=== PATIENT | male | born 1940 | race African-American/Black ===

== ENCOUNTER 2017-09-22 18:34 | Inpatient (IN) | payer MEDICARE, BC ==
[2017-09-22 22:19] LABS: #Eosinphils 0.2 thou/uL (0.0-0.7); #Lymphocytes 0.8 thou/uL (1.20-3.40); #Monocytes 0.6 thou/uL (0.11-0.59); #Neutrophils 4.8 thou/uL (1.40-6.50); %Basophils 0.2 % (0.0-1.0); %Eosinophils 2.9 % (0.0-10.0); %Lymphocytes 11.8 % (21.0-51.0); %Monocytes 9.2 % (0.0-10.0); Hemoglobin 13.2 g/dL (14.0-18.0); Mean Corpuscular HGB CONC 32.9 g/dL (32.0-36.0); Mean Corpuscular Hemoglobin 29.2 pg (27.0-31.0); Mean Corpuscular Volume 88.8 fl (80.0-94.0); Mean Platelet Volume 7.1 fL (7.4-10.4); Platelet Count 152 thou/uL (130-400); RBC Distribution Width 12.2 % (11.5-14.5); White Blood Cell (WBC) Count 6.4 thou/uL (4.8-10.8)
[2017-09-22 22:41] LABS: ALT (SGPT) 36 U/L (8-55); AST (SGOT) 66 U/L (5-34); Albumin 3.8 g/dL (3.4-4.8); Alkaline Phosphatase 56 U/L (40-150); Anion Gap 13 mmol/L (10-20); BUN (Urea Nitrogen) 21 mg/dL (8.4-25.7); Bilirubin, Total 0.8 mg/dL (0.2-1.2); CK (CPK) 3114 U/L (30-200); Calc. Creatinine Clearance 0 mL/min (70-130); Carbon Dioxide 26 mmol/L (23-31); Chloride 100 mmol/L (98-107); Estimated GFR-MDRD 73; Globulin 3.3 g/dL (2.4-3.5); Glucose 134 mg/dL (83-110); Potassium 3.7 mmol/L (3.5-5.1); Protein, Total 7.1 g/dL (5.8-8.1); Sodium 135 mmol/L (136-145)
--- NOTE | 2017-09-22 22:44 | CT ---
CT CERVICAL SPINE 09/22/17 PROVIDED CLINICAL HISTORY: Fall. FINDINGS: There is no evidence for fracture or traumatic subluxation. Cervical degenerative changes are seen. N o prevertebral soft tissue swelling evident. The visualized lung apices appear clear. IMPRESSION: No evidence for fracture or traumatic subluxation. POS: [facility]
[2017-09-22 22:45] LABS: Troponin I 0.044 ng/mL (< 0.028)
--- NOTE | 2017-09-22 22:45 | RAD ---
PORTABLE CHEST 09/22/17 PROVIDED CLINICAL HISTORY: Fall. FINDINGS: Comparison 05/10/11. The cardiac and mediastinal silhouette is within normal limits. Lungs appear clear. No pleural fluid or pneumothorax apparent. IMPRESSION: No evidence for an acute cardiopulmonary process. POS: [facility]
--- NOTE | 2017-09-22 22:56 | CT ---
CT BRAIN 09/22/17 PROVIDED CLINICAL HISTORY: Fall. FINDINGS: Comparison 05/10/11. The ventricular system appears unchanged in size and morphology. There is no evidence for intracrania l hemorrhage or mass effect. There is mucosal thickening seen involving the ethmoid air cells. The ex tracranial soft tissues and osseous structures demonstrate no acute abnormality. IMPRESSION: No evidence for intracranial hemorrhage or mass effect. POS: [facility]
[2017-09-22 23:02] LABS: CKMB 15.7 ng/mL (0-6.6)
[2017-09-23] MEDS ORDERED: Ondansetron HCl/PF 4 MG/2 ML Vial IVP PRN (01:49)
[2017-09-23] MEDS ORDERED: Ondansetron ODT 4 MG TAB SL PRN (01:49)
[2017-09-23] MEDS ORDERED: Acetaminophen 325 MG TAB PO PRN (01:49)
[2017-09-23] MEDS ORDERED: Sodium Chloride 0.9% 1,000 ML IV SCH (02:00)
[2017-09-23] MEDS ORDERED: Bisacodyl 5 MG TAB PO PRN (03:02)
[2017-09-23] MEDS ORDERED: Acetaminophen 650 MG Suppository PR PRN (03:02)
[2017-09-23 03:41] LABS: #Eosinphils 0.2 thou/uL (0.0-0.7); #Lymphocytes 0.6 thou/uL (1.20-3.40); #Monocytes 0.6 thou/uL (0.11-0.59); #Neutrophils 4.1 thou/uL (1.40-6.50); %Basophils 0.3 % (0.0-1.0); %Eosinophils 3.7 % (0.0-10.0); %Lymphocytes 11.3 % (21.0-51.0); %Monocytes 11.5 % (0.0-10.0); %Neutrophils 73.2 % (42.0-75.0); Hemoglobin 12.6 g/dL (14.0-18.0); Mean Corpuscular HGB CONC 33.1 g/dL (32.0-36.0); Mean Corpuscular Hemoglobin 29.3 pg (27.0-31.0); Mean Corpuscular Volume 88.6 fl (80.0-94.0); Mean Platelet Volume 7.3 fL (7.4-10.4); Platelet Count 142 thou/uL (130-400); RBC Distribution Width 12.1 % (11.5-14.5); Red Blood Cell (RBC) Count 4.32 mill/uL (4.70-6.10); White Blood Cell (WBC) Count 5.6 thou/uL (4.8-10.8)
[2017-09-23 04:01] LABS: Anion Gap 8 mmol/L (10-20); BUN (Urea Nitrogen) 21 mg/dL (8.4-25.7); Calc. Creatinine Clearance 0 mL/min (70-130); Calcium 8.7 mg/dL (7.8-10.44); Carbon Dioxide 27 mmol/L (23-31); Chloride 102 mmol/L (98-107); Estimated GFR-MDRD 79; Glucose 154 mg/dL (83-110); Potassium 3.3 mmol/L (3.5-5.1); Sodium 134 mmol/L (136-145)
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
[2017-09-23 04:06] LABS: Troponin I 0.051 ng/mL (< 0.028)
[2017-09-23 04:15] LABS: CKMB 16.3 ng/mL (0-6.6)
[2017-09-23] MEDS: Sodium Chloride 0.9% 1,000 ML IV SCH ×3 (04:24→22:05)
[2017-09-23 04:43] VITALS: BMI 27.6
[2017-09-23 05:48] LABS: INR-International Normal Ratio 2.8; Prothrombin Time 31.1 SEC (12.0-14.7)
[2017-09-23] MEDS ORDERED: Warfarin Sodium 2 MG TAB PO SCH (07:22)
[2017-09-23] MEDS ORDERED: Oseltamivir 75 MG CAP PO SCH (09:00)
[2017-09-23] MEDS ORDERED: Enoxaparin Sodium 40 MG/0.4 ML SYRINGE SC SCH ×2 (09:00)
[2017-09-23] MEDS ORDERED: FLU VACC TS2017-18 (>65YR) 0.5 ML SYRINGE IM ONE (09:00)
[2017-09-23] MEDS ORDERED: Prevnar 13-Val Conj/PF 0.5 ML SYRINGE IM ONE (09:00)
[2017-09-23] MEDS: Acetaminophen 325 MG TAB PO PRN ×2 (11:41→20:07)
--- NOTE | 2017-09-23 12:28 | PDOC.PN ---
- Subjective Encounter Start Date: 09/23/17 Encounter Start Time: 12:25 Mr. Vasquez was seen today in follow-up of Influenza A with sepsis. He has some baseline dementia, he looks weak, and is able to answer some questions, but the respons are unreliable. His daughter-in- law is at the bedside and says he is definitely more confused than usual, but overall looks better than last night. - Objective Resuscitation Status: Resuscitation Status FULL:Full Resuscitation MAR Reviewed: Yes Vital Signs & Weight: Vital Signs (12 hours) Temp Pulse Resp BP BP Pulse Ox 09/23/17 12:00 102.8 F H 114 H 22 H 164/64 H 96 09/23/17 09:10 98.3 F 89 22 H 97 09/23/17 07:25 98.3 F 89 22 H 155/62 H 97 09/23/17 04:00 98.8 F 89 20 153/60 H 97 09/23/17 02:05 100.1 F H 99 22 H 99 09/23/17 01:38 100.1 F H 99 22 H 153/76 H 99 Weight Weight 176 lb 6.4 oz I&O: 09/22/17 09/23/17 09/24/17 06:59 06:59 06:59 Intake Total 471 Output Total 150 Balance 321 Result Diagrams: 09/23/17 03:33 09/23/17 03:33 Phys Exam - Physical Examination HEENT: PERRLA + rhonchi bilaterally no rales Cardiovascular: RRR, no significant murmur Gastrointestinal: soft, non-tender, positive bowel sounds Musculoskeletal: no edema, pulses present + chronic venous stasis changes Dx/Plan (1) Influenza A Code(s): J10.1 - FLU DUE TO OTH IDENT INFLUENZA VIRUS W OTH RESP MANIFEST Status: Acute (2) SIRS (systemic inflammatory response syndrome) Code(s): R65.10 - SIRS OF NON-INFECTIOUS ORIGIN W/O ACUTE ORGAN DYSFUNCTION Status: Acute (3) Rhabdomyolysis Code(s): M62.82 - RHABDOMYOLYSIS Status: Acute (4) Hypertension Code(s): I10 - ESSENTIAL (PRIMARY) HYPERTENSION Status: Acute (5) History of DVT (deep vein thrombosis) Code(s): Z86.718 - PERSONAL HISTORY OF OTHER VENOUS THROMBOSIS AND EMBOLISM Status: Acute - Plan * Influenza A with sepsis- He is still have high fever, and is encephalopathic from the influenza * Continue IV hydration, and antipyretics * Rhabdo- will repeat the CK in the AM * History of DVT on coumadin- continue to monitor PT/INR, discontinue Lovenox * HTN- will continue PARN medications for now, once his fluid status is stable, can re-start his home antihypertensives * PT/OT evaluation, as he may require a stay is care home prior to discharge .
[2017-09-23] MEDS ORDERED: hydrALAZINE 20 MG/ML VIAL SLOW IVP PRN (12:32)
[2017-09-23] MEDS: Warfarin Sodium 2 MG TAB PO SCH (17:02)
[2017-09-23] MEDS: Oseltamivir 75 MG CAP PO SCH (20:13)
[2017-09-23] MEDS ORDERED: Oseltamivir 6 MG/ML ORAL SUSP PO SCH (21:00)
[2017-09-24 05:46] LABS: INR-International Normal Ratio 2.6; Prothrombin Time 29.2 SEC (12.0-14.7)
[2017-09-24 06:34] LABS: Anion Gap 12 mmol/L (10-20); BUN (Urea Nitrogen) 14 mg/dL (8.4-25.7); CK (CPK) 3996 U/L (30-200); Calc. Creatinine Clearance 75 mL/min (70-130); Calcium 8.4 mg/dL (7.8-10.44); Carbon Dioxide 22 mmol/L (23-31); Chloride 108 mmol/L (98-107); Estimated GFR-MDRD Greater than 90; Glucose 110 mg/dL (83-110); Potassium 3.5 mmol/L (3.5-5.1); Sodium 138 mmol/L (136-145)
[2017-09-24] MEDS: Oseltamivir 75 MG CAP PO SCH ×2 (08:06→22:25)
[2017-09-24] MEDS: Sodium Chloride 0.9% 1,000 ML IV SCH ×2 (10:10→12:46)
--- NOTE | 2017-09-24 11:10 | PDOC.PN ---
- Subjective Encounter Start Date: 09/24/17 Encounter Start Time: 09:00 Subjective: breathing better, no sob - Objective Resuscitation Status: Resuscitation Status FULL:Full Resuscitation MAR Reviewed: Yes Vital Signs & Weight: Vital Signs (12 hours) Temp Pulse Resp BP BP Pulse Ox 09/24/17 08:00 98 F 86 22 H 09/24/17 07:50 98 F 86 22 H 112/55 L 93 L 09/24/17 04:00 99.4 F 86 20 132/82 97 09/24/17 00:00 98.1 F 81 20 113/61 97 Weight Weight 176 lb 12.8 oz I&O: 09/23/17 09/24/17 09/25/17 06:59 06:59 06:59 Intake Total 471 1519 240 Output Total 150 50 Balance 321 1469 240 Result Diagrams: 09/23/17 03:33 09/24/17 05:08 Additional Labs: Accuchecks 09/23/17 20:05 POC Glucose 118 H Phys Exam - Physical Examination HEENT: PERRLA, moist MMs Neck: no JVD, supple Respiratory: no wheezing, no rales Cardiovascular: RRR, no significant murmur Gastrointestinal: soft, non-tender, positive bowel sounds Musculoskeletal: no edema, pulses present Neurological: non-focal, moves all 4 limbs Dx/Plan (1) Influenza A Code(s): J10.1 - FLU DUE TO OTH IDENT INFLUENZA VIRUS W OTH RESP MANIFEST Status: Acute (2) Rhabdomyolysis Code(s): M62.82 - RHABDOMYOLYSIS Status: Acute (3) SIRS (systemic inflammatory response syndrome) Code(s): R65.10 - SIRS OF NON-INFECTIOUS ORIGIN W/O ACUTE ORGAN DYSFUNCTION Status: Acute (4) Dementia Code(s): F03.90 - UNSPECIFIED DEMENTIA WITHOUT BEHAVIORAL DISTURBANCE Status: Chronic Qualifiers: Dementia type: unspecified type Dementia behavioral disturbance: without behavioral disturbance Qualified Code(s): F03.90 - Unspecified dementia without behavioral disturbance (5) Hypertension Code(s): I10 - ESSENTIAL (PRIMARY) HYPERTENSION Status: Chronic Qualifiers: Hypertension type: essential hypertension Qualified Code(s): I10 - Essential (primary) hypertension (6) History of DVT (deep vein thrombosis) Code(s): Z86.718 - PERSONAL HISTORY OF OTHER VENOUS THROMBOSIS AND EMBOLISM Status: Chronic - Plan gentle iv hydration, ck still peaking at 3996 -: on tamiflu -: tmax of 100 last 24hrs -: coumadin for h/o dvt, inr is 2.6 -: to mobilize as tolerated * . Review of Systems - Medications/Allergies Allergies/Adverse Reactions: Allergies Allergy/AdvReac Type Severity Reaction Status Date / Time UNKNOWN ANTIBIOTIC Allergy Uncoded 09/23/17 01:48 Medications: Current Medications Acetaminophen (Tylenol) 650 mg PO Q4H PRN PRN Reason: Headache/Fever or Pain Last Admin: 09/23/17 20:07 Dose: 650 mg Acetaminophen (Tylenol) 650 mg [place] Q4H PRN PRN Reason: Headache/Fever or Pain Bisacodyl (Dulcolax) 10 mg PO DAILYPRN PRN PRN Reason: Constipation Hydralazine HCl (Apresoline) 10 mg SLOW IVP Q4H PRN PRN Reason: Systolic BP > 180 Sodium Chloride (Normal Saline 0.9%) 1,000 mls @ 70 mls/hr IV .[id number] [facility] Lisinopril (Zestril) 10 mg PO QAM [facility] Memantine (Namenda) 5 mg PO QAM [facility] Non-Formulary Medication (Doxazosin Mesylate [Doxazosin Mesylate]) 4 mg PO HS [facility] Non-Formulary Medication (Multivit-Min/Fa/Lycopen/Lutein [Centrum Silver Tablet] ) 1 each PO QAM [facility] Oseltamivir Phosphate (Tamiflu) 75 mg PO BID [facility] Stop: 09/27/17 21:01 Last Admin: 09/24/17 08:06 Dose: 75 mg Warfarin Sodium (Coumadin) 1 mg PO WeSa [facility] Warfarin Sodium (Coumadin) 2 [facility] Last Admin: 09/23/17 17:02 Dose: 2 mg
[2017-09-24] MEDS: Warfarin Sodium 2 MG TAB PO SCH (17:39)
[2017-09-24] MEDS: Doxazosin Mesylate 4 MG TAB PO SCH (22:25)
[2017-09-25] MEDS: Sodium Chloride 0.9% 1,000 ML IV SCH ×3 (01:10→21:59)
[2017-09-25 05:11] LABS: #Eosinphils 0.5 thou/uL (0.0-0.7); #Monocytes 0.6 thou/uL (0.11-0.59); #Neutrophils 2.1 thou/uL (1.40-6.50); %Basophils 0.5 % (0.0-1.0); %Eosinophils 11.1 % (0.0-10.0); %Lymphocytes 24.4 % (21.0-51.0); %Monocytes 13.6 % (0.0-10.0); %Neutrophils 50.4 % (42.0-75.0); Hemoglobin 11.7 g/dL (14.0-18.0); Mean Corpuscular HGB CONC 31.7 g/dL (32.0-36.0); Mean Corpuscular Hemoglobin 28.4 pg (27.0-31.0); Mean Corpuscular Volume 89.7 fl (80.0-94.0); Mean Platelet Volume 7.5 fL (7.4-10.4); Platelet Count 131 thou/uL (130-400); RBC Distribution Width 12.1 % (11.5-14.5); Red Blood Cell (RBC) Count 4.13 mill/uL (4.70-6.10); White Blood Cell (WBC) Count 4.2 thou/uL (4.8-10.8)
[2017-09-25 05:22] LABS: INR-International Normal Ratio 2.2; Prothrombin Time 25.1 SEC (12.0-14.7)
[2017-09-25 05:34] LABS: Anion Gap 10 mmol/L (10-20); BUN (Urea Nitrogen) 11 mg/dL (8.4-25.7); CK (CPK) 2734 U/L (30-200); Calc. Creatinine Clearance 82 mL/min (70-130); Calcium 8.3 mg/dL (7.8-10.44); Carbon Dioxide 25 mmol/L (23-31); Chloride 109 mmol/L (98-107); Estimated GFR-MDRD Greater than 90; Glucose 107 mg/dL (83-110); Potassium 3.5 mmol/L (3.5-5.1); Sodium 140 mmol/L (136-145)
[2017-09-25] MEDS: Lisinopril 10 MG TAB PO SCH (08:44)
[2017-09-25] MEDS: Oseltamivir 75 MG CAP PO SCH ×2 (08:45→21:58)
[2017-09-25] MEDS: Multivitamin W/ Minerals 1 TAB PO SCH (08:45)
--- NOTE | 2017-09-25 13:04 | PDOC.PN ---
- Subjective Encounter Start Date: 09/25/17 Encounter Start Time: 10:00 Subjective: is amb in room -: feels better - Objective Resuscitation Status: Resuscitation Status FULL:Full Resuscitation MAR Reviewed: Yes Vital Signs & Weight: Vital Signs (12 hours) Temp Pulse Resp BP BP Pulse Ox 09/25/17 11:30 98.0 F 72 20 150/72 H 96 09/25/17 08:44 154/78 H 09/25/17 08:00 98.2 F 75 16 154/78 H 98 09/25/17 04:00 98.6 F 74 18 138/71 97 Weight Weight 181 lb 7 oz I&O: 09/24/17 09/25/17 09/26/17 06:59 06:59 06:59 Intake Total 1519 2480 180 Output Total 50 Balance 1469 2480 180 Result Diagrams: 09/25/17 04:30 09/25/17 04:30 Phys Exam - Physical Examination HEENT: PERRLA, moist MMs Neck: no JVD, supple Respiratory: no wheezing, no rales Cardiovascular: RRR, no significant murmur Gastrointestinal: soft, non-tender, positive bowel sounds Musculoskeletal: no edema, pulses present Neurological: non-focal, moves all 4 limbs Dx/Plan (1) Influenza A Code(s): J10.1 - FLU DUE TO OTH IDENT INFLUENZA VIRUS W OTH RESP MANIFEST Status: Acute (2) Rhabdomyolysis Code(s): M62.82 - RHABDOMYOLYSIS Status: Acute (3) SIRS (systemic inflammatory response syndrome) Code(s): R65.10 - SIRS OF NON-INFECTIOUS ORIGIN W/O ACUTE ORGAN DYSFUNCTION Status: Acute (4) Dementia Code(s): F03.90 - UNSPECIFIED DEMENTIA WITHOUT BEHAVIORAL DISTURBANCE Status: Chronic Qualifiers: Dementia type: unspecified type Dementia behavioral disturbance: without behavioral disturbance Qualified Code(s): F03.90 - Unspecified dementia without behavioral disturbance (5) Hypertension Code(s): I10 - ESSENTIAL (PRIMARY) HYPERTENSION Status: Chronic Qualifiers: Hypertension type: essential hypertension Qualified Code(s): I10 - Essential (primary) hypertension (6) History of DVT (deep vein thrombosis) Code(s): Z86.718 - PERSONAL HISTORY OF OTHER VENOUS THROMBOSIS AND EMBOLISM Status: Chronic - Plan gentle iv hydration -: ck levels are trending down -: d/w daughter at bedside -: plan is dc in am home with , daughter will stay with parents for holidays -: on tamiflu * . Review of Systems - Medications/Allergies Allergies/Adverse Reactions: Allergies Allergy/AdvReac Type Severity Reaction Status Date / Time UNKNOWN ANTIBIOTIC Allergy Uncoded 09/23/17 01:48 Medications: Current Medications Acetaminophen (Tylenol) 650 mg PO Q4H PRN PRN Reason: Headache/Fever or Pain Last Admin: 09/23/17 20:07 Dose: 650 mg Acetaminophen (Tylenol) 650 mg [place] Q4H PRN PRN Reason: Headache/Fever or Pain Bisacodyl (Dulcolax) 10 mg PO DAILYPRN PRN PRN Reason: Constipation Doxazosin Mesylate (Cardura) 4 mg PO HS [facility] Last Admin: 09/24/17 22:25 Dose: 4 mg Hydralazine HCl (Apresoline) 10 mg SLOW IVP Q4H PRN PRN Reason: Systolic BP > 180 Sodium Chloride (Normal Saline 0.9%) 1,000 mls @ 70 mls/hr IV .[id number] [facility] Last Admin: 09/25/17 01:10 Dose: 1,000 mls Iron/Minerals/Multivitamins (Theragran M) 1 tab PO DAILY [facility] Last Admin: 09/25/17 08:45 Dose: 1 tab Lisinopril (Zestril) 10 mg PO QAM [facility] Last Admin: 09/25/17 08:44 Dose: 10 mg Memantine (Namenda) 5 mg PO QAM [facility] Last Admin: 09/25/17 08:45 Dose: 5 mg Oseltamivir Phosphate (Tamiflu) 75 mg PO BID [facility] Stop: 09/27/17 21:01 Last Admin: 09/25/17 08:45 Dose: 75 mg Warfarin Sodium (Coumadin) 1 mg PO WeSa [facility] Warfarin Sodium (Coumadin) 2 mg PO SuMoTuThFr [facility] Last Admin: 09/24/17 17:39 Dose: 2 mg
[2017-09-25] MEDS: Doxazosin Mesylate 4 MG TAB PO SCH (21:58)
[2017-09-26 05:27] LABS: INR-International Normal Ratio 2.1
[2017-09-26 05:36] LABS: Anion Gap 11 mmol/L (10-20); BUN (Urea Nitrogen) 9 mg/dL (8.4-25.7); CK (CPK) 1280 U/L (30-200); Calc. Creatinine Clearance 90 mL/min (70-130); Calcium 8.5 mg/dL (7.8-10.44); Carbon Dioxide 20 mmol/L (23-31); Chloride 111 mmol/L (98-107); Estimated GFR-MDRD Greater than 90; Glucose 104 mg/dL (83-110); Potassium 3.5 mmol/L (3.5-5.1); Sodium 138 mmol/L (136-145)
[2017-09-26] MEDS: Sodium Chloride 0.9% 1,000 ML IV SCH (07:38)
[2017-09-26] MEDS: Oseltamivir 75 MG CAP PO SCH ×2 (09:28→21:06)
[2017-09-26] MEDS: Benzonatate 100 MG CAP PO SCH ×3 (09:28→21:05)
[2017-09-26] MEDS: Multivitamin W/ Minerals 1 TAB PO SCH (09:29)
[2017-09-26] MEDS: guaiFENesin ER 600 MG TAB PO SCH ×2 (09:29→21:06)
[2017-09-26] MEDS: Lisinopril 10 MG TAB PO SCH (09:29)
--- NOTE | 2017-09-26 11:11 | PDOC.PN ---
- Subjective Encounter Start Date: 09/26/17 Encounter Start Time: 09:00 Subjective: no sob, is eating breakfast -: at bedside - Objective Resuscitation Status: Resuscitation Status FULL:Full Resuscitation MAR Reviewed: Yes Vital Signs & Weight: Vital Signs (12 hours) Temp Pulse Resp BP BP Pulse Ox 09/26/17 09:29 154/81 H 09/26/17 08:00 98.4 F 74 18 96 09/26/17 07:40 98.4 F 74 18 154/81 H 96 09/26/17 04:00 98.4 F 74 18 155/67 H 97 09/26/17 01:07 99.5 F 87 16 174/73 H 96 Weight Weight 181 lb 7 oz I&O: 09/25/17 09/26/17 09/27/17 06:59 06:59 06:59 Intake Total 2480 2930 120 Balance 2480 2930 120 Result Diagrams: 09/25/17 04:30 09/26/17 04:38 Phys Exam - Physical Examination HEENT: PERRLA, moist MMs Neck: no JVD, supple Respiratory: no wheezing, no rales Cardiovascular: RRR, no significant murmur Gastrointestinal: soft, non-tender, positive bowel sounds Musculoskeletal: no edema, pulses present Neurological: non-focal, moves all 4 limbs Dx/Plan (1) Influenza A Code(s): J10.1 - FLU DUE TO OTH IDENT INFLUENZA VIRUS W OTH RESP MANIFEST Status: Acute (2) Rhabdomyolysis Code(s): M62.82 - RHABDOMYOLYSIS Status: Acute (3) SIRS (systemic inflammatory response syndrome) Code(s): R65.10 - SIRS OF NON-INFECTIOUS ORIGIN W/O ACUTE ORGAN DYSFUNCTION Status: Acute (4) Dementia Code(s): F03.90 - UNSPECIFIED DEMENTIA WITHOUT BEHAVIORAL DISTURBANCE Status: Chronic Qualifiers: Dementia type: unspecified type Dementia behavioral disturbance: without behavioral disturbance Qualified Code(s): F03.90 - Unspecified dementia without behavioral disturbance (5) Hypertension Code(s): I10 - ESSENTIAL (PRIMARY) HYPERTENSION Status: Chronic Qualifiers: Hypertension type: essential hypertension Qualified Code(s): I10 - Essential (primary) hypertension (6) History of DVT (deep vein thrombosis) Code(s): Z86.718 - PERSONAL HISTORY OF OTHER VENOUS THROMBOSIS AND EMBOLISM Status: Chronic - Plan at bedside says she cant take care of him at home -: wants either rehab or swing bed, cm consult -: has amb around 60ft with rw -: is on tamiflu -: dc iv fluids, mobilize as tolerated * . Review of Systems - Medications/Allergies Allergies/Adverse Reactions: Allergies Allergy/AdvReac Type Severity Reaction Status Date / Time amoxicillin Allergy Verified 09/25/17 22:13 UNKNOWN ANTIBIOTIC Allergy Uncoded 09/23/17 01:48 Medications: Current Medications Acetaminophen (Tylenol) 650 mg PO Q4H PRN PRN Reason: Headache/Fever or Pain Last Admin: 09/23/17 20:07 Dose: 650 mg Acetaminophen (Tylenol) 650 mg [place] Q4H PRN PRN Reason: Headache/Fever or Pain Albuterol Sulfate (Albuterol Sulfate) 1.25 mg NEB [id number] [facility] Benzonatate (Tessalon) 100 mg PO TID [facility] Last Admin: 09/26/17 09:28 Dose: 100 mg Bisacodyl (Dulcolax) 10 mg PO DAILYPRN PRN PRN Reason: Constipation Doxazosin Mesylate (Cardura) 4 mg PO HS [facility] Last Admin: 09/25/17 21:58 Dose: 4 mg Guaifenesin (Mucinex) 600 mg PO Q12HR [facility] Last Admin: 09/26/17 09:29 Dose: 600 mg Hydralazine HCl (Apresoline) 10 mg SLOW IVP Q4H PRN PRN Reason: Systolic BP > 180 Iron/Minerals/Multivitamins (Theragran M) 1 tab PO DAILY [facility] Last Admin: 09/26/17 09:29 Dose: 1 tab Lisinopril (Zestril) 10 mg PO QAM [facility] Last Admin: 09/26/17 09:29 Dose: 10 mg Memantine (Namenda) 5 mg PO QAM [facility] Last Admin: 09/26/17 09:28 Dose: 5 mg Oseltamivir Phosphate (Tamiflu) 75 mg PO BID [facility] Stop: 09/27/17 21:01 Last Admin: 09/26/17 09:28 Dose: 75 mg Warfarin Sodium (Coumadin) 1 mg PO WeSa [facility] Warfarin Sodium (Coumadin) 2 mg PO SuMoTuThFr [facility] Last Admin: 09/24/17 17:39 Dose: 2 mg
[2017-09-26] MEDS: Albuterol Sulfate 1.25 MG/3 ML NEB NEB SCH (14:54)
[2017-09-26] MEDS: Warfarin Sodium 2 MG TAB PO SCH (18:00)
[2017-09-26] MEDS: Doxazosin Mesylate 4 MG TAB PO SCH (21:06)
[2017-09-27] MEDS: Albuterol Sulfate 1.25 MG/3 ML NEB NEB SCH ×4 (03:53→23:57)
[2017-09-27 05:31] LABS: INR-International Normal Ratio 2.3; Prothrombin Time 26.2 SEC (12.0-14.7)
[2017-09-27] MEDS: Lisinopril 10 MG TAB PO SCH (09:22)
[2017-09-27] MEDS: guaiFENesin ER 600 MG TAB PO SCH ×2 (09:22→21:48)
[2017-09-27] MEDS: Benzonatate 100 MG CAP PO SCH ×3 (09:22→21:48)
[2017-09-27] MEDS: Oseltamivir 75 MG CAP PO SCH ×2 (09:22→21:48)
[2017-09-27] MEDS: Multivitamin W/ Minerals 1 TAB PO SCH (09:23)
--- NOTE | 2017-09-27 10:13 | PDOC.PN ---
- Subjective Encounter Start Date: 09/27/17 Encounter Start Time: 09:00 Subjective: no sob, is sitting on bed -: feels good - Objective Resuscitation Status: Resuscitation Status FULL:Full Resuscitation MAR Reviewed: Yes Vital Signs & Weight: Vital Signs (12 hours) Temp Pulse Resp BP BP Pulse Ox 09/27/17 09:22 137/82 09/27/17 04:00 98.6 F 69 20 162/76 H 97 09/27/17 00:00 98.4 F 78 18 163/66 H 97 Weight Weight 181 lb 7 oz I&O: 09/26/17 09/27/17 09/28/17 06:59 06:59 06:59 Intake Total 2930 840 Balance 2930 840 Result Diagrams: 09/25/17 04:30 09/26/17 04:38 Phys Exam - Physical Examination HEENT: PERRLA, moist MMs Neck: no JVD, supple Respiratory: no wheezing, no rales rhonchi+ Cardiovascular: RRR, no significant murmur Gastrointestinal: soft, non-tender, positive bowel sounds Musculoskeletal: no edema, pulses present Neurological: non-focal, moves all 4 limbs Dx/Plan (1) Influenza A Code(s): J10.1 - FLU DUE TO OTH IDENT INFLUENZA VIRUS W OTH RESP MANIFEST Status: Acute (2) Rhabdomyolysis Code(s): M62.82 - RHABDOMYOLYSIS Status: Acute (3) SIRS (systemic inflammatory response syndrome) Code(s): R65.10 - SIRS OF NON-INFECTIOUS ORIGIN W/O ACUTE ORGAN DYSFUNCTION Status: Acute (4) Dementia Code(s): F03.90 - UNSPECIFIED DEMENTIA WITHOUT BEHAVIORAL DISTURBANCE Status: Chronic Qualifiers: Dementia type: unspecified type Dementia behavioral disturbance: without behavioral disturbance Qualified Code(s): F03.90 - Unspecified dementia without behavioral disturbance (5) Hypertension Code(s): I10 - ESSENTIAL (PRIMARY) HYPERTENSION Status: Chronic Qualifiers: Hypertension type: essential hypertension Qualified Code(s): I10 - Essential (primary) hypertension (6) History of DVT (deep vein thrombosis) Code(s): Z86.718 - PERSONAL HISTORY OF OTHER VENOUS THROMBOSIS AND EMBOLISM Status: Chronic - Plan awaiting placement -: may dc anytime placement is ready -: alb neb q8h, tamiflu -: dc iv fluids, is eating well -: inr is 2.3 on coumadin for h/o dvt * . Review of Systems - Medications/Allergies Allergies/Adverse Reactions: Allergies Allergy/AdvReac Type Severity Reaction Status Date / Time amoxicillin Allergy Verified 09/25/17 22:13 UNKNOWN ANTIBIOTIC Allergy Uncoded 09/23/17 01:48 Medications: Current Medications Acetaminophen (Tylenol) 650 mg PO Q4H PRN PRN Reason: Headache/Fever or Pain Last Admin: 09/23/17 20:07 Dose: 650 mg Acetaminophen (Tylenol) 650 mg OH Q4H PRN PRN Reason: Headache/Fever or Pain Albuterol Sulfate (Albuterol Sulfate) 1.25 mg NEB [id number] [facility] Last Admin: 09/27/17 09:54 Dose: Not Given Benzonatate (Tessalon) 100 mg PO TID [facility] Last Admin: 09/27/17 09:22 Dose: 100 mg Bisacodyl (Dulcolax) 10 mg PO DAILYPRN PRN PRN Reason: Constipation Doxazosin Mesylate (Cardura) 4 mg PO HS [facility] Last Admin: 09/26/17 21:06 Dose: 4 mg Guaifenesin (Mucinex) 600 mg PO Q12HR [facility] Last Admin: 09/27/17 09:22 Dose: 600 mg Hydralazine HCl (Apresoline) 10 mg SLOW IVP Q4H PRN PRN Reason: Systolic BP > 180 Iron/Minerals/Multivitamins (Theragran M) 1 tab PO DAILY [facility] Last Admin: 09/27/17 09:23 Dose: 1 tab Lisinopril (Zestril) 10 mg PO QAM [facility] Last Admin: 09/27/17 09:22 Dose: 10 mg Memantine (Namenda) 5 mg PO QAM [facility] Last Admin: 09/27/17 09:22 Dose: 5 mg Oseltamivir Phosphate (Tamiflu) 75 mg PO BID [facility] Stop: 09/27/17 21:01 Last Admin: 09/27/17 09:22 Dose: 75 mg Warfarin Sodium (Coumadin) 1 mg PO WeSa [facility] Warfarin Sodium (Coumadin) 2 mg PO SuMoTuThFr [facility] Last Admin: 09/26/17 18:00 Dose: 2 mg
[2017-09-27] MEDS: Warfarin Sodium 2 MG TAB PO SCH (17:04)
[2017-09-27] MEDS: Doxazosin Mesylate 4 MG TAB PO SCH (21:47)
[2017-09-28 08:26] LABS: INR-International Normal Ratio 2.5; Prothrombin Time 28.3 SEC (12.0-14.7)
[2017-09-28] MEDS: guaiFENesin ER 600 MG TAB PO SCH (08:33)
[2017-09-28] MEDS: Lisinopril 10 MG TAB PO SCH (08:33)
[2017-09-28] MEDS: Multivitamin W/ Minerals 1 TAB PO SCH (08:33)
[2017-09-28] MEDS: Benzonatate 100 MG CAP PO SCH (08:33)
[2017-09-28] MEDS: Albuterol Sulfate 1.25 MG/3 ML NEB NEB SCH (09:13)
--- NOTE | 2017-09-28 10:41 | PDOC.PN ---
- Subjective Encounter Start Date: 09/28/17 Encounter Start Time: 08:00 Subjective: awake, no sob, feels better - Objective Resuscitation Status: Resuscitation Status FULL:Full Resuscitation MAR Reviewed: Yes Vital Signs & Weight: Vital Signs (12 hours) Temp Pulse Resp BP BP Pulse Ox 09/28/17 09:16 95 09/28/17 09:13 72 14 95 09/28/17 08:33 153/70 H 09/28/17 08:00 98.8 F 72 20 153/70 H 95 09/27/17 23:57 89 12 93 L Weight Weight 181 lb 7 oz I&O: 09/27/17 09/28/17 09/29/17 06:59 06:59 06:59 Intake Total 840 1820 120 Balance 840 1820 120 Result Diagrams: 09/25/17 04:30 09/26/17 04:38 Phys Exam - Physical Examination HEENT: PERRLA, moist MMs Neck: no JVD, supple Respiratory: no wheezing, no rales Cardiovascular: RRR, no significant murmur Gastrointestinal: soft, non-tender, positive bowel sounds Musculoskeletal: no edema, pulses present Neurological: non-focal, moves all 4 limbs Dx/Plan (1) Influenza A Code(s): J10.1 - FLU DUE TO OTH IDENT INFLUENZA VIRUS W OTH RESP MANIFEST Status: Acute Comment: resolving (2) Rhabdomyolysis Code(s): M62.82 - RHABDOMYOLYSIS Status: Acute Comment: resolving (3) SIRS (systemic inflammatory response syndrome) Code(s): R65.10 - SIRS OF NON-INFECTIOUS ORIGIN W/O ACUTE ORGAN DYSFUNCTION Status: Resolved (4) Dementia Code(s): F03.90 - UNSPECIFIED DEMENTIA WITHOUT BEHAVIORAL DISTURBANCE Status: Chronic Qualifiers: Dementia type: unspecified type Dementia behavioral disturbance: without behavioral disturbance Qualified Code(s): F03.90 - Unspecified dementia without behavioral disturbance (5) Hypertension Code(s): I10 - ESSENTIAL (PRIMARY) HYPERTENSION Status: Chronic Qualifiers: Hypertension type: essential hypertension Qualified Code(s): I10 - Essential (primary) hypertension (6) History of DVT (deep vein thrombosis) Code(s): Z86.718 - PERSONAL HISTORY OF OTHER VENOUS THROMBOSIS AND EMBOLISM Status: Chronic - Plan awaiting placement, may dc when ready -: inr is therapeutic for h/o dvt -: to amb with rw as tolerated -: d/w and daughter in room -: hemostable, has finished his course of tamiflu * . Review of Systems - Medications/Allergies Allergies/Adverse Reactions: Allergies Allergy/AdvReac Type Severity Reaction Status Date / Time amoxicillin Allergy Verified 09/25/17 22:13 UNKNOWN ANTIBIOTIC Allergy Uncoded 09/23/17 01:48 Medications: Current Medications Acetaminophen (Tylenol) 650 mg PO Q4H PRN PRN Reason: Headache/Fever or Pain Last Admin: 09/23/17 20:07 Dose: 650 mg Acetaminophen (Tylenol) 650 mg DE Q4H PRN PRN Reason: Headache/Fever or Pain Albuterol Sulfate (Albuterol Sulfate) 1.25 mg NEB [id number] [facility] Last Admin: 09/28/17 09:13 Dose: 1.25 mg Benzonatate (Tessalon) 100 mg PO TID [facility] Last Admin: 09/28/17 08:33 Dose: 100 mg Bisacodyl (Dulcolax) 10 mg PO DAILYPRN PRN PRN Reason: Constipation Doxazosin Mesylate (Cardura) 4 mg PO HS [facility] Last Admin: 09/27/17 21:47 Dose: 4 mg Guaifenesin (Mucinex) 600 mg PO Q12HR [facility] Last Admin: 09/28/17 08:33 Dose: 600 mg Hydralazine HCl (Apresoline) 10 mg SLOW IVP Q4H PRN PRN Reason: Systolic BP > 180 Iron/Minerals/Multivitamins (Theragran M) 1 tab PO DAILY [facility] Last Admin: 09/28/17 08:33 Dose: 1 tab Lisinopril (Zestril) 10 mg PO QAM [facility] Last Admin: 09/28/17 08:33 Dose: 10 mg Memantine (Namenda) 5 mg PO QAM [facility] Last Admin: 09/28/17 08:33 Dose: 5 mg Warfarin Sodium (Coumadin) 1 mg PO WeSa [facility] Warfarin Sodium (Coumadin) 2 mg PO SuMoTuThFr [facility] Last Admin: 09/27/17 17:04 Dose: 2 mg
[2017-09-28] MEDS ORDERED: WARFARIN PO PRN (13:56)
[2017-09-28 14:36] LABS: Bilirubin Negative (Negative); Blood, Urine Negative (Negative); Clarity CLOUDY (Clear); Glucose, Urine (Dipstick) Negative (Negative); Leukocyte Moderate (Negative); Nitrite Negative (Negative); Protein, Urine (Dipstick) Negative (Neg-Trace); Specific Gravity, Urine 1.017 (1.002-1.036)
[2017-09-28 14:37] LABS: Bacteria/HPF 2+ HPF (None Seen); Hyaline Casts/LPF 4-6 HYALINE CAST LPF (0-3 Hyaline); Pathc Cast-AUWi Flag 0.54 (0-2.49); RBC/HPF 0-3 HPF (0-3); Squamous Epithelial None Seen HPF (0-3)
[2017-09-28 15:49] VITALS: BP 152/69; TEMP 98.2
--- NOTE | 2017-09-28 19:18 | DIS ---
DATE OF ADMISSION: 09/23/2017 DATE OF DISCHARGE: 09/28/2017 DISCHARGE DISPOSITION: To [facility]. PRIMARY DISCHARGE DIAGNOSES: Influenza A with systemic inflammatory response syndrome, rhabdomyolysis. SECONDARY DISCHARGE DIAGNOSES: Dementia; deconditioning; hypertension; history of deep vein thrombosis, on Coumadin. PROCEDURES DONE DURING HOSPITALIZATION: CT brain done showed no acute intracranial abnormalities. CT cervical spine done showed no fracture or subluxation. Chest x-ray done showed no acute cardiopulmonary process. Influenza A antigen was positive on the flu screen. Discharge PT/INR 28 and 2.5. I had an initial CK of 3114. Troponin I was indeterminate at 0.05. DISCHARGE MEDICATIONS: Albuterol nebulizer q.8 h. p.r.n., doxazosin 4 mg p.o. at bedtime, lisinopril 10 mg p.o. daily, memantine 5 mg p.o. q.a.m., vitamin E 400 units p.o. q.a.m., Coumadin 2 mg as before. ALLERGIES: AMOXICILLIN. DISCHARGE PLAN: The patient is being discharged to swing bed at [facility]. BRIEF COURSE DURING HOSPITALIZATION: The patient initially got admitted on the after he apparently fell at home. He was unable to get up by himself after the fall. He was also coughing over the last 2 weeks and has been feeling weak. His initial flu screen was positive for influenza A. The patient had CK levels of 3114. He was essentially admitted for SIRS with influenza A and rhabdomyolysis. The patient has had gentle hydration done and was placed on Tamiflu. He was also on empiric antibiotics initially and has been discontinued at the time of discharge. He is hemodynamically stable. In view of deconditioning, he is being discharged to a swing bed in [facility]. A total of 35 minutes was spent on discharge. Please see a face to face documentation on [facility] for the day of discharge. [facility]
[2017-09-29] MEDS ORDERED: Warfarin Sodium 1 MG TAB PO SCH (17:00)
--- NOTE | 2017-10-02 13:27 | EKG ---
Test Reason : Blood Pressure : / mmHG Vent. Rate : 100 BPM Atrial Rate : 100 BPM P-R Int : 154 ms QRS Dur : 082 ms QT Int : 346 ms P-R-T Axes : 079 016 018 degrees QTc Int : 446 ms Sinus rhythm with occasional Premature ventricular complexes and Premature atrial complexes Otherwise normal ECG Confirmed by DALTON TAVAREZ ([id number]), rock contractor FLOR MICHEL ([id number]) on 10/02/2017 1:27:19 PM Referred By: Confirmed By:DALTON TAVAREZ
--- NOTE | 2017-10-08 14:01 | PQF ---
DONNA STRICKLAND VINAYA KUMAR MD [id number] CLINICAL DOCUMENTATION CLARIFICATION FORM: POST DISCHARGE DONNA STRICKLAND [id number] RONEY ALVARADO PLEASE DOCUMENT YOUR RESPONSE BELOW PLEASE FAX RESPONSE BACK TO [phone] YOUR INPUT IS NEEDED TO CORRECTLY CODE A DIAGNOSIS FOR YOUR PATIENT. DATE: 10/08/16 ATTN: DR DAVIS Please exercise your independent, professional judgment in responding to the clarification form. Clinical indicators are provided on the bottom of this form for your review Please check appropriate box(s) to clarify if the following diagnosis has been ruled in our ruled out: SEPSIS (CDI/Coding list diagnosis here) [ ] Ruled in diagnosis [ ] Continue to treat [ x] Resolved [ ] Ruled out diagnosis [ ] Cannot rule out diagnosis [ ] Other diagnosis [ ] Unable to determine In addition, please specify: Present on Admission (POA): [ ] Yes [ ] No [ ] Unable to determine For continuity of documentation, please document condition throughout progress notes and discharge summary. Thank You. CLINICAL INDICATORS - SIGNS / SYMPTOMS / LABS tachycardia, fever and encephalopathy, and high glucose in absence of DM all POA RISK FACTORS Influenza A TREATMENTS antibiotics hydration Documentation throughout charts gives conflicting diagnosis of SIRS on some progress notes and other notes state Sepsis. Please state whether Sepsis was ruled in or out. (This form is maintained as a part of the permanent medical record) 2014 [employer] All Rights Reserved Omayra [email or web address] [phone] ALEAH
== END 2017-09-28 16:30 | DRG 872 ==
LOC: ERS 18:34 → T4-B 09-23 00:15
PROVIDERS: ADMIT Internal Medicine; ATTEND Internal Medicine
DX: A41.9 Sepsis, unspecified organism (principal); M62.82 Rhabdomyolysis; F03.90 Unspecified dementia, unspecified severity, without behavioral disturbance, psychotic disturbance, mood disturbance, and anxiety; J10.1 Influenza due to other identified influenza virus with other respiratory manifestations; I10 Essential (primary) hypertension; N40.0 Benign prostatic hyperplasia without lower urinary tract symptoms; Z86.718 Personal history of other venous thrombosis and embolism; Z79.01 Long term (current) use of anticoagulants; Z88.1 Allergy status to other antibiotic agents; W18.30XA Fall on same level, unspecified, initial encounter; Y92.019 Unspecified place in single-family (private) house as the place of occurrence of the external cause; J10.81 Influenza due to other identified influenza virus with encephalopathy
CPT/HCPCS: 36415; 36416; 70450; 71010; 72125; 80048; 80053; 81003; 81015; 82550; 82553; 84484; 85025; 85610; 87077; 87086; 87186; 93005; 94640; 96360; G8978-GP-CL; G8979-GP-CJ; G8987-GO-CJ; G8988-GO-CI

== ENCOUNTER 2017-09-30 19:24 | Emergency (ER) | payer MEDICARE, BC | END 2017-09-30 20:59 | disposition home or self-care (01) | LOC: ERS 19:24 | DX: N39.0 Urinary tract infection, site not specified (principal); I10 Essential (primary) hypertension; Z79.891 Long term (current) use of opiate analgesic; Z79.899 Other long term (current) drug therapy | CPT/HCPCS: 99284 ==

== ENCOUNTER 2018-03-02 17:44 | Inpatient (IN) | payer MEDICARE, BC ==
[2018-03-02 18:29] LABS: #Lymphocytes 0.6 thou/uL (1.20-3.40); #Monocytes 0.6 thou/uL (0.11-0.59); #Neutrophils 6.6 thou/uL (1.40-6.50); %Basophils 0.3 % (0.0-1.0); %Eosinophils 0.5 % (0.0-10.0); %Lymphocytes 7.2 % (21.0-51.0); %Monocytes 7.8 % (0.0-10.0); %Neutrophils 84.2 % (42.0-75.0); Hemoglobin 13.1 g/dL (14.0-18.0); Mean Corpuscular HGB CONC 32.8 g/dL (32.0-36.0); Mean Corpuscular Hemoglobin 28.2 pg (27.0-31.0); Mean Corpuscular Volume 85.8 fl (80.0-94.0); Mean Platelet Volume 6.9 fL (7.4-10.4); Platelet Count 182 thou/uL (130-400); RBC Distribution Width 11.5 % (11.5-14.5); Red Blood Cell (RBC) Count 4.64 mill/uL (4.70-6.10); White Blood Cell (WBC) Count 7.8 thou/uL (4.8-10.8)
--- NOTE | 2018-03-02 18:46 | RAD ---
SINGLE VIEW OF THE CHEST: 03/02/18 COMPARISON: 09/22/17 HISTORY: Fever and tachycardia. FINDINGS: Single view of the chest shows a normal sized cardiomediastinal silhouette. There is no evidence of c onsolidation, mass, or pleural effusion. Degenerative changes are seen in the spine. IMPRESSION: No evidence of acute cardiopulmonary disease. POS: [facility]
[2018-03-02 18:50] LABS: ALT (SGPT) 21 U/L (8-55); AST (SGOT) 17 U/L (5-34); Albumin 3.6 g/dL (3.4-4.8); Alkaline Phosphatase 57 U/L (40-150); Anion Gap 11 mmol/L (10-20); BUN (Urea Nitrogen) 18 mg/dL (8.4-25.7); Bilirubin, Total 0.6 mg/dL (0.2-1.2); Calc. Creatinine Clearance 0 mL/min (70-130); Carbon Dioxide 22 mmol/L (23-31); Chloride 99 mmol/L (98-107); Estimated GFR-MDRD 77; Globulin 3.4 g/dL (2.4-3.5); Glucose 159 mg/dL (83-110); Sodium 128 mmol/L (136-145)
[2018-03-02 18:51] LABS: Bilirubin Negative (Negative); Blood, Urine Moderate (Negative); Clarity CLEAR (Clear); Glucose, Urine (Dipstick) Negative (Negative); Leukocyte Moderate (Negative); Nitrite Positive (Negative); Protein, Urine (Dipstick) Negative (Neg-Trace); Specific Gravity, Urine 1.018 (1.002-1.036)
[2018-03-02 18:54] LABS: CKMB 0.5 ng/mL (0-6.6); Troponin I Less than 0.010 ng/mL (< 0.028)
[2018-03-02 18:54] LABS: Bacteria/HPF 4+ HPF (None Seen); Hyaline Casts/LPF 0-3 HYALINE CAST LPF (0-3 Hyaline); Pathc Cast-AUWi Flag 0.14 (0-2.49); Squamous Epithelial 0-3 HPF (0-3)
[2018-03-02] MEDS ORDERED: Sodium Chloride 0.9% 100 ML ONE (19:14)
[2018-03-02] MEDS ORDERED: cefTRIAXone\\ROCEPHIN 2 GM VIAL ONE (19:14)
[2018-03-02] MEDS ORDERED: Acetaminophen 650 MG Suppository PR PRN (22:03)
[2018-03-02] MEDS ORDERED: Ondansetron HCl/PF 4 MG/2 ML Vial IVP PRN (22:03)
[2018-03-02] MEDS ORDERED: Acetaminophen 325 MG TAB PO PRN (22:03)
[2018-03-02 22:50] LABS: INR-International Normal Ratio 1.8; Prothrombin Time 21.1 SEC (12.0-14.7)
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
[2018-03-03] MEDS ORDERED: Warfarin Sodium 1 MG TAB PO SCH (00:30)
[2018-03-03 01:29] VITALS: BMI 28.4
[2018-03-03] MEDS: Sodium Chloride 0.9% 1,000 ML IV SCH ×2 (01:36→15:29)
[2018-03-03 05:13] LABS: #Eosinphils 0.1 thou/uL (0.0-0.7); #Neutrophils 5.2 thou/uL (1.40-6.50); %Basophils 0.2 % (0.0-1.0); %Eosinophils 0.8 % (0.0-10.0); %Lymphocytes 13.9 % (21.0-51.0); %Monocytes 13.4 % (0.0-10.0); %Neutrophils 71.7 % (42.0-75.0); Hemoglobin 12.2 g/dL (14.0-18.0); Mean Corpuscular HGB CONC 33.4 g/dL (32.0-36.0); Mean Corpuscular Hemoglobin 28.6 pg (27.0-31.0); Mean Corpuscular Volume 85.6 fl (80.0-94.0); Mean Platelet Volume 6.8 fL (7.4-10.4); Platelet Count 174 thou/uL (130-400); RBC Distribution Width 11.4 % (11.5-14.5); Red Blood Cell (RBC) Count 4.25 mill/uL (4.70-6.10); White Blood Cell (WBC) Count 7.3 thou/uL (4.8-10.8)
[2018-03-03 05:28] LABS: Anion Gap 12 mmol/L (10-20); BUN (Urea Nitrogen) 15 mg/dL (8.4-25.7); Calc. Creatinine Clearance 67 mL/min (70-130); Calcium 8.6 mg/dL (7.8-10.44); Carbon Dioxide 24 mmol/L (23-31); Chloride 103 mmol/L (98-107); Estimated GFR-MDRD 82; Glucose 133 mg/dL (83-110); Sodium 135 mmol/L (136-145)
--- NOTE | 2018-03-03 14:37 | PDOC.PN ---
- Subjective Encounter Start Date: 03/03/18 Encounter Start Time: 10:30 Subjective: pt up in bed no complains - Objective Vital Signs & Weight: Vital Signs (12 hours) Temp Pulse Resp BP Pulse Ox 03/03/18 12:46 91 17 120/59 L 98 03/03/18 09:02 97.6 F 90 17 147/63 H 98 03/03/18 03:42 98.6 F 86 17 120/57 L 97 Weight Weight 181 lb 8 oz I&O: 03/02/18 03/03/18 03/04/18 06:59 06:59 06:59 Intake Total 590 Balance 590 Result Diagrams: 03/03/18 04:42 03/03/18 04:42 Phys Exam - Physical Examination HEENT: PERRLA, moist MMs, sclera anicteric, TM's clear, oral pharynx no lesions , 2+ tonsils Neck: no nodes, no JVD, supple, full ROM Respiratory: no wheezing, no rales, no rhonchi, wheezing present, clear to auscultation bilateral Cardiovascular: RRR, no significant murmur, no rub, gallop, irregular Gastrointestinal: soft, non-tender, no distention, positive bowel sounds Musculoskeletal: no edema, pulses present, edema present Neurological: non-focal, normal sensation, moves all 4 limbs Dx/Plan - Plan * sepsis * uti * hyponatremia resolved * hx of dvt * htn * * plan: urine cx pending. will continue iv abx for now. will conitinue his coumadin. will continue his home meds. His hyponatremia has resolved. will consult PT. Review of Systems - Review of Systems Eyes: negative: Pain, Vision Change, Conjunctivae Inflammation, Eyelid Inflammation, Redness, Other ENT: negative: Ear Pain, Ear Discharge, Nose Pain, Nose Discharge, Nose Congestion, Mouth Pain, Mouth Swelling, Throat Pain, Throat Swelling, Other Respiratory: negative: Cough, Dry, Shortness of Breath, Hemoptysis, SOB with Excertion, Pleuritic Pain, Sputum, Wheezing Cardiovascular: negative: chest pain, palpitations, orthopnea, paroxysmal nocturnal dyspnea, edema, light headedness, other Gastrointestinal: negative: Nausea, Vomiting, Abdominal Pain, Diarrhea, Constipation, Melena, Hematochezia, Other Genitourinary: negative: Dysuria, Frequency, Incontinence, Hematuria, Retention , Other Musculoskeletal: negative: Neck Pain, Shoulder Pain, Arm Pain, Back Pain, Hand Pain, Leg Pain, Foot Pain, Other - Medications/Allergies Allergies/Adverse Reactions: Allergies Allergy/AdvReac Type Severity Reaction Status Date / Time amoxicillin Allergy Verified 03/03/18 03:53 UNKNOWN ANTIBIOTIC Allergy Uncoded 09/23/17 01:48 Medications: Current Medications Acetaminophen (Tylenol) 650 mg PO Q4H PRN PRN Reason: Headache/Fever or Pain Acetaminophen (Tylenol) 650 mg NM Q4H PRN PRN Reason: Headache/Fever or Pain Ceftriaxone Sodium 1 gm/ (Sodium Chloride) 100 mls @ 200 mls/hr IVPB Q24HR [facility] Sodium Chloride (Normal Saline 0.9%) 1,000 mls @ 70 mls/hr IV .[id number] [facility] Last Admin: 03/03/18 01:36 Dose: 1,000 mls Miscellaneous Medication (Pharmacy To Dose) 1 each PO PRN PRN PRN Reason: Pharmacy to dose Ondansetron HCl (Zofran) 4 mg IVP Q6H PRN PRN Reason: Nausea/Vomiting Sodium Chloride (Flush - Normal Saline) 10 ml IVF Q12HR [facility] Last Admin: 03/03/18 09:04 Dose: Not Given Sodium Chloride (Flush - Normal Saline) 10 ml IVF PRN PRN PRN Reason: Saline Flush Last Admin: 03/03/18 01:37 Dose: 10 ml Warfarin Sodium (Coumadin) 1 mg PO WeSa@1700 [facility] Warfarin Sodium (Coumadin) 2 mg PO SuMoTuThFr@1700 [facility]
[2018-03-03] MEDS: Warfarin Sodium 2 MG TAB PO SCH (17:41)
[2018-03-03] MEDS: Doxazosin Mesylate 4 MG TAB PO SCH (20:54)
[2018-03-03] MEDS: cefTRIAXone\\ROCEPHIN 1 GM in Sodium Chloride 0.9% 100 ML IVPB SCH (20:54)
[2018-03-04 05:29] LABS: INR-International Normal Ratio 1.5; Prothrombin Time 18.3 SEC (12.0-14.7)
[2018-03-04] MEDS: Sodium Chloride 0.9% 1,000 ML IV SCH (07:15)
[2018-03-04] MEDS: Multivit, Therapeutic 1 TAB PO SCH (09:30)
[2018-03-04] MEDS: Lisinopril 10 MG TAB PO SCH (09:30)
--- NOTE | 2018-03-04 11:48 | EKG ---
Test Reason : ER INDICATION Blood Pressure : / mmHG Vent. Rate : 110 BPM Atrial Rate : 110 BPM P-R Int : 176 ms QRS Dur : 076 ms QT Int : 322 ms P-R-T Axes : 027 020 028 degrees QTc Int : 435 ms Sinus tachycardia with Premature atrial complexes Otherwise normal ECG Confirmed by DALTON TAVAREZ ([id number]), scientific publications editor FLOR MICHEL ([id number]) on 03/04/2018 11:47:18 AM Referred By: Confirmed By:DALTON TAVAREZ
[2018-03-04] MEDS: Warfarin Sodium 2 MG TAB PO SCH (17:30)
[2018-03-04] MEDS: Doxazosin Mesylate 4 MG TAB PO SCH (20:28)
[2018-03-04] MEDS: cefTRIAXone\\ROCEPHIN 1 GM in Sodium Chloride 0.9% 100 ML IVPB SCH (20:28)
--- NOTE | 2018-03-04 21:05 | PDOC.PN ---
- Subjective Encounter Start Date: 03/04/18 Encounter Start Time: 10:30 Subjective: pt up in bed at bedside no complains - Objective Vital Signs & Weight: Vital Signs (12 hours) Temp Pulse Pulse Resp BP BP BP 03/04/18 15:15 97.5 F L 71 16 144/63 H 03/04/18 11:55 98.1 F 75 18 129/60 03/04/18 11:07 73 152/69 H 03/04/18 09:30 158/69 H Pulse Ox 03/04/18 15:15 97 03/04/18 11:55 98 03/04/18 11:07 03/04/18 09:30 Weight Weight 185 lb 1.6 oz I&O: 03/03/18 03/04/18 03/05/18 06:59 06:59 06:59 Intake Total 590 3050 1055 Balance 590 3050 1055 Result Diagrams: 03/03/18 04:42 03/03/18 04:42 Phys Exam - Physical Examination HEENT: PERRLA, moist MMs, sclera anicteric, TM's clear, oral pharynx no lesions , 2+ tonsils Neck: no nodes, no JVD, supple, full ROM Respiratory: no wheezing, no rales, no rhonchi, wheezing present, clear to auscultation bilateral Cardiovascular: RRR, no significant murmur, no rub, gallop, irregular Gastrointestinal: soft, non-tender, no distention, positive bowel sounds Musculoskeletal: no edema, pulses present, edema present Dx/Plan - Plan * sepsis * uti * hyponatremia resolved * hx of dvt * htn * * plan: urine cx pending. will continue iv abx for now. will continue his coumadin. will continue his home meds. His hyponatremia has resolved. will consult PT. * * 03/04 will await cx and change abx per sensitivities. will continue to monitor hyponatremia. continue Coumadin. Review of Systems - Review of Systems Eyes: negative: Pain, Vision Change, Conjunctivae Inflammation, Eyelid Inflammation, Redness, Other ENT: negative: Ear Pain, Ear Discharge, Nose Pain, Nose Discharge, Nose Congestion, Mouth Pain, Mouth Swelling, Throat Pain, Throat Swelling, Other Respiratory: negative: Cough, Dry, Shortness of Breath, Hemoptysis, SOB with Excertion, Pleuritic Pain, Sputum, Wheezing Cardiovascular: negative: chest pain, palpitations, orthopnea, paroxysmal nocturnal dyspnea, edema, light headedness, other Musculoskeletal: negative: Neck Pain, Shoulder Pain, Arm Pain, Back Pain, Hand Pain, Leg Pain, Foot Pain, Other - Medications/Allergies Allergies/Adverse Reactions: Allergies Allergy/AdvReac Type Severity Reaction Status Date / Time amoxicillin Allergy Verified 03/03/18 03:53 UNKNOWN ANTIBIOTIC Allergy Uncoded 09/23/17 01:48 Medications: Current Medications Acetaminophen (Tylenol) 650 mg PO Q4H PRN PRN Reason: Headache/Fever or Pain Acetaminophen (Tylenol) 650 mg [place] Q4H PRN PRN Reason: Headache/Fever or Pain Doxazosin Mesylate (Cardura) 4 mg PO HS [facility] Last Admin: 03/04/18 20:28 Dose: 4 mg Ceftriaxone Sodium 1 gm/ (Sodium Chloride) 100 mls @ 200 mls/hr IVPB Q24HR [facility] Last Admin: 03/04/18 20:28 Dose: 100 mls Lisinopril (Zestril) 10 mg PO QAM [facility] Last Admin: 03/04/18 09:30 Dose: 10 mg Memantine (Namenda) 5 mg PO BID [facility] Last Admin: 03/04/18 20:27 Dose: 5 mg Miscellaneous Medication (Pharmacy To Dose) 1 each PO PRN PRN PRN Reason: Pharmacy to dose Multivitamins (Theragran) 1 tab PO DAILY [facility] Last Admin: 03/04/18 09:30 Dose: 1 tab Ondansetron HCl (Zofran) 4 mg IVP Q6H PRN PRN Reason: Nausea/Vomiting Sodium Chloride (Flush - Normal Saline) 10 ml IVF Q12HR [facility] Last Admin: 03/04/18 20:29 Dose: 10 ml Sodium Chloride (Flush - Normal Saline) 10 ml IVF PRN PRN PRN Reason: Saline Flush Last Admin: 03/03/18 01:37 Dose: 10 ml Warfarin Sodium (Coumadin) 1 mg PO WeSa@1700 [facility] Warfarin Sodium (Coumadin) 2 mg PO SuMoTuThFr@1700 [facility] Last Admin: 03/04/18 17:30 Dose: 2 mg
[2018-03-05 05:43] LABS: INR-International Normal Ratio 1.5; Prothrombin Time 18.4 SEC (12.0-14.7)
[2018-03-05 05:48] LABS: Anion Gap 8 mmol/L (10-20); BUN (Urea Nitrogen) 12 mg/dL (8.4-25.7); Calc. Creatinine Clearance 71 mL/min (70-130); Calcium 8.8 mg/dL (7.8-10.44); Carbon Dioxide 26 mmol/L (23-31); Chloride 107 mmol/L (98-107); Estimated GFR-MDRD 85; Glucose 104 mg/dL (83-110); Potassium 3.9 mmol/L (3.5-5.1); Sodium 137 mmol/L (136-145)
[2018-03-05 05:57] LABS: Eosinophils 15 % (0-10); Hemoglobin 12.5 g/dL (14.0-18.0); Hypochromia SLIGHT = 6-15 cells (100X) (0-5/hpf); Lymphocytes 25 % (21-51); MDiff Complete? YES; Mean Corpuscular Hemoglobin 28.4 pg (27.0-31.0); Mean Corpuscular Volume 85.9 fl (80.0-94.0); Mean Platelet Volume 6.8 fL (7.4-10.4); Monocytes 15 % (0-10); Neutrophil 30 % (42-75); PLT Morphology Comment Appears Adequate; Platelet Count 192 thou/uL (130-400); RBC Distribution Width 11.5 % (11.5-14.5); Reactive Lymphocytes 15 % (0-10); Red Blood Cell (RBC) Count 4.39 mill/uL (4.70-6.10); White Blood Cell (WBC) Count 4.9 thou/uL (4.8-10.8)
[2018-03-05] MEDS: Lisinopril 10 MG TAB PO SCH (09:11)
[2018-03-05] MEDS: Multivit, Therapeutic 1 TAB PO SCH (09:12)
--- NOTE | 2018-03-05 09:49 | PDOC.PN ---
- Subjective Encounter Start Date: 03/05/18 Encounter Start Time: 08:45 -: old records requested/rev Patient seen and examined for UTI. No new complaints. No overnight events - Objective MAR Reviewed: Yes Vital Signs & Weight: Vital Signs (12 hours) Temp Pulse Resp BP BP Pulse Ox 03/05/18 09:11 154/62 H 03/05/18 07:44 98.2 F 55 L 16 154/62 H 98 03/05/18 04:40 97.9 F 64 18 133/72 95 03/05/18 04:14 99 03/05/18 00:00 98.7 F 70 20 154/69 H 99 Weight Weight 185 lb 1.6 oz I&O: 03/04/18 03/05/18 03/06/18 06:59 06:59 06:59 Intake Total 3050 1365 Output Total 400 Balance 3050 965 Result Diagrams: 03/05/18 04:26 03/05/18 04:26 Phys Exam - Physical Examination Constitutional: NAD HEENT: PERRLA, moist MMs, sclera anicteric Neck: no JVD, supple Respiratory: no wheezing, no rales, no rhonchi Cardiovascular: RRR, no significant murmur, no rub Gastrointestinal: soft, non-tender, no distention, positive bowel sounds Musculoskeletal: no edema, pulses present Neurological: non-focal, normal sensation, moves all 4 limbs Lymphatic: no nodes Psychiatric: normal affect, A&O x 3 Skin: no rash, normal turgor Dx/Plan (1) UTI (urinary tract infection) Status: Acute (2) Chronic anticoagulation Code(s): Z79.01 - RAND CEMENTER (CURRENT) USE OF ANTICOAGULANTS Status: Chronic (3) Dementia Code(s): F03.90 - UNSPECIFIED DEMENTIA WITHOUT BEHAVIORAL DISTURBANCE Status: Chronic Qualifiers: Dementia type: unspecified type Dementia behavioral disturbance: without behavioral disturbance Qualified Code(s): F03.90 - Unspecified dementia without behavioral disturbance (4) History of DVT (deep vein thrombosis) Code(s): Z86.718 - PERSONAL HISTORY OF OTHER VENOUS THROMBOSIS AND EMBOLISM Status: Chronic (5) Hypertension Code(s): I10 - ESSENTIAL (PRIMARY) HYPERTENSION Status: Chronic Qualifiers: Hypertension type: essential hypertension Qualified Code(s): I10 - Essential (primary) hypertension (6) Hyponatremia Code(s): E87.1 - HYPO-OSMOLALITY AND HYPONATREMIA Status: Resolved - Plan cont current plan of care, plan discussed w/ family, continue antibiotics * medication reviewed as below * symptomatic treatment * continue macrobid * discussed with . Review of Systems - Review of Systems Eyes: negative: Pain, Vision Change, Conjunctivae Inflammation, Eyelid Inflammation, Redness, Other ENT: negative: Ear Pain, Ear Discharge, Nose Pain, Nose Discharge, Nose Congestion, Mouth Pain, Mouth Swelling, Throat Pain, Throat Swelling, Other Respiratory: negative: Cough, Dry, Shortness of Breath, Hemoptysis, SOB with Excertion, Pleuritic Pain, Sputum, Wheezing Cardiovascular: negative: chest pain, palpitations, orthopnea, paroxysmal nocturnal dyspnea, edema, light headedness, other Gastrointestinal: negative: Nausea, Vomiting, Abdominal Pain, Diarrhea, Constipation, Melena, Hematochezia, Other Genitourinary: negative: Dysuria, Frequency, Incontinence, Hematuria, Retention , Other Musculoskeletal: negative: Neck Pain, Shoulder Pain, Arm Pain, Back Pain, Hand Pain, Leg Pain, Foot Pain, Other Skin: negative: Rash, Lesions, Saqib, Bruising, Other - Medications/Allergies Allergies/Adverse Reactions: Allergies Allergy/AdvReac Type Severity Reaction Status Date / Time amoxicillin Allergy Verified 03/03/18 03:53 UNKNOWN ANTIBIOTIC Allergy Uncoded 09/23/17 01:48 Medications: Current Medications Acetaminophen (Tylenol) 650 mg PO Q4H PRN PRN Reason: Headache/Fever or Pain Acetaminophen (Tylenol) 650 mg NM Q4H PRN PRN Reason: Headache/Fever or Pain Doxazosin Mesylate (Cardura) 4 mg PO HS [facility] Last Admin: 03/04/18 20:28 Dose: 4 mg Ceftriaxone Sodium 1 gm/ (Sodium Chloride) 100 mls @ 200 mls/hr IVPB Q24HR [facility] Last Admin: 03/04/18 20:28 Dose: 100 mls Lisinopril (Zestril) 10 mg PO QAM [facility] Last Admin: 03/05/18 09:11 Dose: 10 mg Memantine (Namenda) 5 mg PO BID [facility] Last Admin: 03/05/18 09:11 Dose: 5 mg Miscellaneous Medication (Pharmacy To Dose) 1 each PO PRN PRN PRN Reason: Pharmacy to dose Multivitamins (Theragran) 1 tab PO DAILY [facility] Last Admin: 03/05/18 09:12 Dose: 1 tab Ondansetron HCl (Zofran) 4 mg IVP Q6H PRN PRN Reason: Nausea/Vomiting Sodium Chloride (Flush - Normal Saline) 10 ml IVF Q12HR [facility] Last Admin: 03/05/18 09:12 Dose: 10 ml Sodium Chloride (Flush - Normal Saline) 10 ml IVF PRN PRN PRN Reason: Saline Flush Last Admin: 03/03/18 01:37 Dose: 10 ml Warfarin Sodium (Coumadin) 1 mg PO WeSa@1700 [facility] Warfarin Sodium (Coumadin) 2 mg PO SuMoTuThFr@1700 [facility] Last Admin: 03/04/18 17:30 Dose: 2 mg
--- NOTE | 2018-03-05 10:34 | DIS ---
DATE OF ADMISSION: 03/03/2018 DATE OF DISCHARGE: 03/05/2018 PRIMARY CARE PHYSICIAN: Dr. Diego Reeves. DISCHARGE DISPOSITION: Home. PRIMARY DISCHARGE DIAGNOSES: Hyponatremia, corrected; dehydration, corrected; urinary tract infectio n due to Citrobacter. 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 PRIMARY PROCEDURE AND OPERATION: None. RADIOLOGICAL INVESTIGATION: Chest x-ray normal. SIGNIFICANT LABORATORY DATA: WBC 4.9, hemoglobin 12.5, platelet 192. INR 1.5. Sodium 137, creatini ne 1.02. LFT normal. Cardiac enzymes negative. Urinalysis suggestive of UTI. Urine culture grew C itrobacter. Blood culture negative. DISCHARGE MEDICATIONS: Macrobid 100 mg p.o. b.i.d. for 7 more days, doxazosin 4 mg p.o. at bedtime, hydrochlorothiazide 25 mg p.o. daily, lisinopril 10 mg p.o. daily, Namenda 5 mg p.o. b.i.d., multivit anaya 1 tablet p.o. daily, potassium chloride 10 mEq p.o. daily, vitamin E 400 unit p.o. daily, warfar in 2 mg as directed. CONTRAINDICATIONS: None. CODE STATUS: FULL CODE. INPATIENT CONSULTANTS: None. ALLERGIES: AMOXICILLIN. DISCHARGE PLAN: Post hospital, the patient will follow up with primary care physician in 1 week. HOSPITAL COURSE: A 77-year-old male with above-mentioned medical problem who was admitted by Dr. Johnny feliciano, please see his H&P for further details. The patient was admitted for urinary tract infection. T he patient was clinically appeared dehydrated. He was very weak on admission. He had hyponatremia. He was hydrated with IV fluid and his sodium was improved. His urinalysis was suggestive of UTI and urine culture grew Citrobacter. His blood culture was negative. He was treated with Rocephin while in hospital. Upon discharge, we changed to Macrobid. The patient is seen and examined at bedside today. He is stable, afebrile, tolerating p.o. well. Pl an of discharge discussed with the patient's . Please see my progress note from today for further detail.
[2018-03-05 11:54] VITALS: BP 139/72; TEMP 98.1
[2018-03-05] MEDS ORDERED: Warfarin Sodium 1 MG TAB PO SCH (17:00)
== END 2018-03-05 13:07 | disposition home or self-care (01) | DRG 872 ==
LOC: ERS 17:44 → 2NO 03-03 01:09 → T4-B 03-04 18:56
PROVIDERS: ADMIT Family Medicine; ATTEND Family Medicine
DX: A41.59 Other Gram-negative sepsis (principal); N39.0 Urinary tract infection, site not specified; E87.1 Hypo-osmolality and hyponatremia; I10 Essential (primary) hypertension; N40.0 Benign prostatic hyperplasia without lower urinary tract symptoms; Z79.899 Other long term (current) drug therapy; Z88.0 Allergy status to penicillin; Z79.01 Long term (current) use of anticoagulants; E86.0 Dehydration; Z86.718 Personal history of other venous thrombosis and embolism
CPT/HCPCS: 36415; 51701; 71045; 80048; 80053; 81003; 81015; 82553; 83605; 84484; 85007; 85025; 85027; 85610; 87040; 87077; 87086; 87186; 93005; 94760; 96361; 96365; 96367; A4216; G8978-GP-CM; G8979-GP-CK; J0696; J3370; J7050

== ENCOUNTER 2018-11-10 05:48 | Emergency (ER) | payer MEDICARE, BC ==
[2018-11-10] MEDS ORDERED: Ondansetron PF 4 MG/2 ML Vial ONE (06:38)
[2018-11-10 06:45] LABS: #Basophils 0.1 thou/uL (0.0-0.2); #Eosinphils 0.2 thou/uL (0.0-0.7); #Lymphocytes 1.5 thou/uL (1.20-3.40); #Monocytes 0.5 thou/uL (0.11-0.59); %Basophils 1.2 % (0.0-1.0); %Eosinophils 3.2 % (0.0-10.0); %Lymphocytes 28.4 % (21.0-51.0); %Monocytes 10.1 % (0.0-10.0); %Neutrophils 57.1 % (42.0-75.0); Hemoglobin 13.2 g/dL (14.0-18.0); Mean Corpuscular HGB CONC 32.2 g/dL (32.0-36.0); Mean Corpuscular Hemoglobin 27.5 pg (27.0-31.0); Mean Corpuscular Volume 85.4 fL (78.0-98.0); Mean Platelet Volume 8.1 fL (7.4-10.4); Platelet Count 192 thou/uL (130-400); Red Blood Cell (RBC) Count 4.79 mill/uL (4.70-6.10); White Blood Cell (WBC) Count 5.2 thou/uL (4.8-10.8)
[2018-11-10 07:06] LABS: ALT (SGPT) 21 U/L (8-55); AST (SGOT) 23 U/L (5-34); Albumin 3.9 g/dL (3.4-4.8); Alkaline Phosphatase 64 U/L (40-150); Anion Gap 13 mmol/L (10-20); BUN (Urea Nitrogen) 14 mg/dL (8.4-25.7); Bilirubin, Total 0.5 mg/dL (0.2-1.2); Calc. Creatinine Clearance 0 mL/min (70-130); Calcium 9.3 mg/dL (7.8-10.44); Carbon Dioxide 23 mmol/L (23-31); Chloride 101 mmol/L (98-107); Estimated GFR-MDRD 81; Globulin 3.4 g/dL (2.4-3.5); Glucose 121 mg/dL (83-110); Lipase 58 U/L (8-78); Potassium 4.2 mmol/L (3.5-5.1); Protein, Total 7.3 g/dL (5.8-8.1); Sodium 133 mmol/L (136-145)
[2018-11-10 07:14] LABS: INR-International Normal Ratio 2.6; PTT 34.1 SEC (22.9-36.1); Prothrombin Time 27.9 SEC (12.0-14.7)
--- NOTE | 2018-11-10 08:04 | CT ---
CT ABDOMEN AND PELVIS WITH COTNRAST: HISTORY: Vomiting blood for 1 ay. TECHNIQUE: Multiple contiguous axial images were obtained in a CT of the abdomen and pelvis with contrast. Chani nal reformats were performed. FINDINGS: A 1.4 cm hypodensity in the right kidney represents a cyst. A subcentimeter hypodensity in the left kidney also likely represents a cyst. The liver, gallbladder, adrenal glands, spleen, and pancreas a re unremarkable. No free air, free fluid, or stranding changes are seen in the abdomen or pelvis. Moderate stool retention is seen in the rectum and distal sigmoid colon. No abnormality is seen in t he small bowel. The appendix is unremarkable. No abdominal or pelvic lymphadenopathy are seen. Atherosclerotic calcifications are seen in the aort a. There is a small hiatal hernia. Degenerative changes are seen in the spine. The abdominal wall soft tissues are unremarkable. IMPRESSION: 1. No evidence of acute intraabdominal/pelvic abnormality. 2. Hiatal hernia. 3. Bilateral renal cysts. 4. Moderate stool retention in the colon. POS: [facility]
[2018-11-10] MEDS ORDERED: ISOVUE-370 76%-LOCM 1 ML ONE (10:29)
== END 2018-11-10 08:32 | disposition home or self-care (01) ==
LOC: ERS 05:48
DX: K59.00 Constipation, unspecified (principal); I10 Essential (primary) hypertension; F03.90 Unspecified dementia, unspecified severity, without behavioral disturbance, psychotic disturbance, mood disturbance, and anxiety; Z79.899 Other long term (current) drug therapy
CPT/HCPCS: 36415; 74177; 80053; 83690; 85025; 85610; 85730; 86850; 86900; 86901; 96374; J2405; Q9966

== ENCOUNTER 2019-01-02 15:08 | Emergency (ER) | payer MEDICARE, BC ==
[2019-01-02 15:59] LABS: #Eosinphils 0.1 thou/uL (0.0-0.7); #Monocytes 0.4 thou/uL (0.11-0.59); #Neutrophils 2.7 thou/uL (1.40-6.50); %Basophils 0.9 % (0.0-1.0); %Eosinophils 3.3 % (0.0-10.0); %Lymphocytes 22.1 % (21.0-51.0); %Monocytes 9.7 % (0.0-10.0); Hemoglobin 12.2 g/dL (14.0-18.0); Mean Corpuscular HGB CONC 32.6 g/dL (32.0-36.0); Mean Corpuscular Hemoglobin 27.7 pg (27.0-31.0); Mean Corpuscular Volume 85.2 fL (78.0-98.0); Mean Platelet Volume 7.1 fL (7.4-10.4); Platelet Count 186 thou/uL (130-400); White Blood Cell (WBC) Count 4.3 thou/uL (4.8-10.8)
[2019-01-02 16:22] LABS: ALT (SGPT) 19 U/L (8-55); AST (SGOT) 18 U/L (5-34); Albumin 3.8 g/dL (3.4-4.8); Alkaline Phosphatase 57 U/L (40-150); Anion Gap 9 mmol/L (10-20); BUN (Urea Nitrogen) 18 mg/dL (8.4-25.7); Bilirubin, Total 0.4 mg/dL (0.2-1.2); Calc. Creatinine Clearance 0 mL/min (70-130); Calcium 8.8 mg/dL (7.8-10.44); Carbon Dioxide 27 mmol/L (23-31); Chloride 103 mmol/L (98-107); Estimated GFR-MDRD Greater than 90; Globulin 2.6 g/dL (2.4-3.5); Glucose 118 mg/dL (83-110); Potassium 3.7 mmol/L (3.5-5.1); Protein, Total 6.4 g/dL (5.8-8.1); Sodium 135 mmol/L (136-145)
--- NOTE | 2019-01-02 16:30 | CT ---
FExam: Head CT without contrast HISTORY: Dizziness COMPARISON: 09/22/2017 FINDINGS: Hemorrhage: No intraparenchymal hemorrhage or extra-axial hematoma. Brain parenchyma: Cortical hinson-white matter differentiation is preserved. No mass effect or midline shift. Basilar cisterns are patent wrangling, age-appropriate. 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 Ventricular system: Ventricles and sulci are patent and symmetric. Calvarium: Intact. Sinuses and mastoid air cells: Adequate aeration. IMPRESSION: No acute intracranial process.
--- NOTE | 2019-01-02 16:32 | RAD ---
FExam: Chest one view HISTORY:Hypotension Comparison: 03/02/2018 FINDINGS: Cardiac silhouette:Enlarged Pulmonary vessels: Normal Costophrenic angles: Clear LUNGS: No masses or consolidation. Pneumothorax: None Osseous abnormalities: None IMPRESSION: Cardiomegaly, without evidence of congestive heart failure
== END 2019-01-02 17:41 | disposition home or self-care (01) ==
LOC: ERS 15:08
DX: R42 Dizziness and giddiness (principal); I10 Essential (primary) hypertension; F03.90 Unspecified dementia, unspecified severity, without behavioral disturbance, psychotic disturbance, mood disturbance, and anxiety; Z79.899 Other long term (current) drug therapy
CPT/HCPCS: 36415; 70450; 71045; 80053; 84484; 85025; 93005